=== PATIENT | male | born 1960 | race Caucasian/White ===

== ENCOUNTER 2016-12-07 06:58 | Day surgery (SDC) | payer OTHER ==
[~2016-12-07] VITALS: Ht 175.3 cm; Wt 102.1 kg
[2016-12-07] MEDS ORDERED: LR 1,000 ML IV SCH ×3 (07:15→16:30)
[2016-12-07] MEDS ORDERED: LISI-538 PO (07:33)
[2016-12-07] MEDS ORDERED: PROPOFOL 200 MG/20 ML VIAL As Ordered ONE (08:17)
[2016-12-07] MEDS ORDERED: fentaNYL 100 MCG/2 ML INJECTION (J3010) As Ordered ONE ×3 (08:17→12:43)
[2016-12-07] MEDS ORDERED: ROCURONIUM BROMIDE 50 MG/5 ML VIAL/SYRINGE As Ordered ONE (08:17)
[2016-12-07] MEDS ORDERED: LIDOCAINE 2% INJ 100 MG/5 ML SDV (FOR ANES.) As Ordered ONE (08:17)
[2016-12-07] MEDS ORDERED: MIDAZOLAM INJ 2 MG/2 ML VIAL (J2250) As Ordered ONE ×2 (08:18→08:29)
[2016-12-07] MEDS ORDERED: EPINEPHrine INJ 1 MG/ML 1ML AMP As Ordered ONE (09:43)
[2016-12-07] MEDS ORDERED: MIDAZOLAM INJ 2 MG/2 ML VIAL (J2250) IV ONE (10:00)
[2016-12-07] MEDS ORDERED: fentaNYL 100 MCG/2 ML INJECTION (J3010) IV ONE (10:00)
[2016-12-07] MEDS ORDERED: ePHEDrine SULFATE 25 MG/5 ML(5MG/ML) SYRINGE As Ordered ONE ×2 (10:49→11:14)
[2016-12-07] MEDS ORDERED: PHENYLephrine HCL 500 MCG/5 ML (100MCG/ML) SYRINGE (J2370) As Ordered ONE (10:51)
[2016-12-07] MEDS ORDERED: NEOSTIGMINE 1MG/ML 5 ML SYRINGE (J2710) As Ordered ONE (11:07)
[2016-12-07] MEDS ORDERED: GLYCOPYRROLATE INJ 0.2 MG/ML 2 ML VIAL As Ordered ONE (11:07)
[2016-12-07] MEDS ORDERED: ONDANSETRON 4MG/2ML VIAL (J2405) As Ordered ONE (11:07)
[2016-12-07] MEDS ORDERED: PERCOCET 5MG/325MG TAB PO PRN (16:30)
[2016-12-07] MEDS ORDERED: MORPHINE 4 MG/ML 1ML SYRINGE IV PRN (16:30)
[2016-12-07] MEDS ORDERED: ONDANSETRON 4MG/2ML VIAL (J2405) IV PRN (16:30)
[2016-12-07] MEDS ORDERED: NORCO, ANEXSIA 5/325MG TABLET (HYDROcodone/ACETAMINOPHEN) PO PRN ×2 (16:30)
[2016-12-07] MEDS ORDERED: HYDROmorphone HCL 1 MG/ML SYRINGE (J1170) IV PRN (16:30)
[2016-12-07] MEDS ORDERED: fentaNYL 100 MCG/2 ML INJECTION (J3010) IV PRN (16:30)
[2016-12-07 16:50] VITALS: BP 129/86
--- NOTE | 2016-12-08 13:57 | RO ---
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 PROCEDURE: Left shoulder rotator cuff repair with superior capsular reconstruction using a dermal allograft. SURGEON: Dr. Jose Mansfield MOLD BREAKER: HILL Jimenez ANESTHESIA: Left interscalene nerve block with general endotracheal tube anesthesia. COMPLICATIONS: None. FINDINGS: He had a massive retracted tear. There was actually a bart of bone attached to a portion of posterior rotator cuff posteriorly noted. The supraspinatus tendon was retracted back to the level of the scapular spine and not reparable. The biceps was actually in good position and good repair. Minimal fraying noted. The subscapularis had some minor upper border tearing, but it seemed to be intact. Glenohumeral articular cartilage had some mild chondromalacia. Thus, I felt that it was amenable to superior capsular reconstruction. DESCRIPTION OF PROCEDURE: After antibiotics given intravenously preoperatively and successful left interscalene nerve block and then general endotracheal anesthetic was established, he was placed in semi beach chair position. The [employer] shoulder frankel was utilized. The left shoulder was then carefully prepped and draped in the usual sterile fashion after appropriate time out and posterior portal was established. Inspection of the shoulder joint, arthroscopically and posteriorly noted a massive tear and the biceps was intact. The subscapularis appeared to be intact. Glenohumeral articular cartilage was other pristine. Thus, we placed the scope in the subacromial space and also established a more posterolateral working portal and then lateral working portal was established with a spinal needle localization. We debrided the under surface of the acromion, as well as the foot print of the supraspinatus, used the bur and the shaver to make a good bleeding bone surface. I then dissected medially making sure we kept the superior labrum intact, but was able to get down to bare bone along the superior aspect of the glenoid from the base of the coracoid posteriorly to the scapular spine. The posterior rotator cuff was somewhat mobile back over the top of the humeral head , but just to a short distance, but leaving a large gap between the posterior heads of the infraspinatus and the biceps tendon and the subscapularis tendon. Thus, I felt superior capsular reconstruction was indicated. I established a Neviaser portal superiorly and then placed a doubly loaded suture tack. I then established a posterior portal with spinal needle localization to place a posterior suture tack with a drill and then place the suture tack. This was also doubly loaded. At the base of the corticoid anteriorly, I placed a third suture tack, doubly loaded, through a percutaneous incision using the drill and then inserting the suture tack. I then did our measurements using the measuring wand and once we had the appropriate measurements on the back table, the dermal allograft was trimmed appropriately. I then brought the dermal allograft up into the field and then used a double soledad technique to insert the graft and attach it to the medial superior glenoid surface. Once the pass port cannula had been established, all the limbs of the sutures were passed out through the pass port cannula, and then I passed one limb from the anterior suture tack, one limb from the middle suture tack, and then tied them together, and then grabbed one limb from the middle suture tack and one limb from the posterior suture tack and tied them together. Then, once those were tied together, I used the Bartow to grab the dermal allograft and slip it down through the pass port cannula and then allowing it to pull up against the medial edge of the glenoid. Then I tied each one of these knots as a double soledad technique using alternating post hitches, securing medially the graft in a good position. It is noteworthy that luggage tag sutures were placed on the lateral corners of the graft prior to insertion and then those were also pulled into the joint through separate portals so I could have control of the lateral portion of the graft by pulling on those alternatively. Once that had been established and the medial row fixation had been established, I then used a speed bridge kit to do a standard speed bridge repair of the lateral edge of this dermal allograft. First the anterior medial row was placed with a swivel lock and then the tapes were passed up with the swivel lock and then the tapes were passed up through the anterolateral corner and then docked outside of the joint, and then I passed the posterior medial swivel lock in its appropriate position after using the punch, and then used the Uepaa suture passer to pass the fiber tapes up through. Then I cut them short and grabbed one limb from the anterior medial row and one limb from the posterior medial row, and then passed them out through the lateral cannula, loaded them on a swivel lock outside the joint, and then inserted the fiber tapes into the anterolateral row using a punch and then inserting the swivel lock. Then I grabbed the remaining two fiber tapes and passed them through a swivel lock outside the joint, used the punch and then inserted the anchor at the posterolateral row, making sure the appropriate tension was applied to the tapes , as well as positioning to make sure that there is good tension on this dermal allograft. Once that had been established and the tapes were cut short, I did three [id number] sutures from the infraspinatus to the graft. I first used the Scorpion suture passer with the FiberWire in a simple fashion, passed it up to the graft in a side to side configuration and tied that. Next, lateral side to side suture was used using the rescue sutures from the medial row anchor posteriorly. These were also passed in a side to side fashion up to the infraspinatus and up through the graft and then tied. Then a third free suture FiberWire was passed once again from the infraspinatus to the allograft posteriorly, providing nice and firm, watertight closure posteriorly. Anteriorly, I tagged down the anterior edge at the anterolateral corner of the graft using the rescue sutures from the anteromedial anchor and secured that. A nice repair was noted. The graft came right up against the biceps tendon. No other tissue to grab the anterior leading edge of the graft and thus this was left alone. I brought the shoulder through a range of motion and it appeared to be appropriately positioned. Then, we concluded the procedure by closing the wounds with interrupted nylon sutures, covered by Adaptic, dry sterile bulky dressing. He was placed in an abduction pillow brace sling and then awakened from general endotracheal anesthesia after having tolerated the procedure well, transferred to the recovery room in stable condition. There were no intraoperative complications. Mr. Wyatt Lorenzo was critical to the success of this very difficult operation, which took about 4 hours and 25 minutes or so. He held the camera, helped to pass sutures, helped to close the wound, and helped to manipulate the shoulder and many other tasks. LI
== END 2016-12-07 17:27 | disposition home or self-care (01) ==
LOC: M SDC 06:58
PROVIDERS: ATTEND Orthopaedic Surgery
DX: M75.122 Complete rotator cuff tear or rupture of left shoulder, not specified as traumatic (principal); M54.5 Low back pain; L40.9 Psoriasis, unspecified; J45.909 Unspecified asthma, uncomplicated; M51.86 Other intervertebral disc disorders, lumbar region; I10 Essential (primary) hypertension; Z79.899 Other long term (current) drug therapy; Z79.82 Long term (current) use of aspirin
CPT/HCPCS: 29806; 29827; A4649; C1762; C1776; J0690; J2250; J2370; J2405; J2710; J3010

== ENCOUNTER → 2018-08-01 | Outpatient (REF) | payer OTHER ==
[~2018-08-01] MED LIST: LISI-538 PO
== END ==
LOC: M LAB LCGH 10:06
PROVIDERS: ATTEND Nurse Practitioner Family
DX: D48.9 Neoplasm of uncertain behavior, unspecified (principal)